=== PATIENT | female | born 1985 | race Caucasian/White ===

== ENCOUNTER 2016-12-24 22:51 | Emergency (ER) | payer MEDICAID ==
[2016-12-24 23:04] VITALS: BP 134/82
--- NOTE | 2016-12-25 00:16 | ED Physician Documentation ---
PD HPI FEMALE - Stated complaint Stated Complaint: FEMALE - Chief complaint Chief Complaint: General - History obtained from History obtained from: Patient - History of Present Illness Timing - onset: How many days ago (2) Timing - duration: Days (2) Timing - details: Gradual onset, Still present Associated symptoms: Vaginal discharge Contributing factors: IUD, Sexually active Similar symptoms before: Has not had sx before Recently seen: Not recently seen - Additional information Additional information: 31-year-old female is concerned that she may have foreign body in the vagina. She is having a foul smell and she does recall that she used toilet paper instead of a tampon and has had intercourse since then. She is worried about retained foreign body. Review of Systems Constitutional: denies: Fever Eyes: denies: Decreased vision Ears: denies: Ear pain Nose: denies: Congestion Throat: denies: Sore throat Cardiac: denies: Chest pain / pressure Respiratory: denies: Dyspnea, Cough GI: denies: Abdominal Pain, Nausea, Vomiting : reports: Discharge. denies: Dysuria, Frequency Skin: denies: Rash Musculoskeletal: denies: Neck pain, Back pain Neurologic: denies: Generalized weakness, Focal weakness, Numbness PD PAST MEDICAL HISTORY - Past Medical History Past Medical History: No - Past Surgical History Past Surgical History: No - Present Medications Home Medications: Ambulatory Orders Medication Instructions Recorded Confirmed No Known Home Medications [No 12/24/16 12/24/16 Known Home Medications] - Allergies Allergies/Adverse Reactions: Allergies Allergy/AdvReac Type Severity Reaction Status Date / Time No Known Drug Allergies Allergy Verified 12/24/16 23:04 - Social History Does the pt smoke?: Yes Smoking Status: Current every day smoker Does the pt drink ETOH?: No Does the pt have substance abuse?: Yes Substance Use and Type: Heroin - Immunizations Immunizations are current?: Yes - POLST Patient has POLST: No PD ED PE NORMAL - Vitals Vital signs reviewed: Yes (Normal) - General General: No acute distress, Well developed/nourished - HEENT HEENT: Atraumatic - Respiratory Respiratory: No respiratory distress - Female Female : Manager Assessment present (Denise), Other (There is a condom present in the vaginal vault. This is removed with a ring forceps and the vaginal vault is irrigated with water. There is matted pubic hair on the string of the IUD. This is removed with the use of the ring forceps and the area is further irrigated. There was no evidence of toilet paper in the vagina.) - Derm Derm: Normal color, Warm and dry, No rash - Neuro Neuro: No motor deficit, No sensory deficit - Psych Psych: Normal mood, Normal affect Results - Vitals Vitals: Vital Signs - 24 hr 12/24/16 22:55 Temperature 36.6 C Heart Rate 97 Respiratory 18 Rate Blood Pressure 134/82 H O2 Saturation 100 Oxygen O2 Source Room air PD MEDICAL DECISION MAKING - ED course Complexity details: considered differential, d/w patient ED course: 31-year-old female with vaginal foreign body that is removed with the red vagina is cleaned and the patient is is expected to recover fully. Departure - Departure Disposition: 01 Home, Self Care Clinical Impression: Vaginal foreign body Qualifiers: Encounter type: initial encounter Qualified Code(s): T19.2XXA - Foreign body in vulva and vagina, initial encounter Condition: Stable Instructions: ED Foreign Body Vaginal Follow-Up: [facility] [Provider Group]
== END 2016-12-25 00:36 | disposition home or self-care (01) ==
LOC: ED 22:51
DX: T19.2XXA Foreign body in vulva and vagina, initial encounter (principal); X58.XXXA Exposure to other specified factors, initial encounter; F17.200 Nicotine dependence, unspecified, uncomplicated
CPT/HCPCS: 99282; 99283

== ENCOUNTER 2017-09-23 08:00 | Outpatient (CLI) | payer MEDICAID | END 2017-09-23 08:01 | LOC: LAB.R 08:00 | PROVIDERS: ATTEND Nurse Practitioner Obstetrics & Gynecology | DX: N89.8 Other specified noninflammatory disorders of vagina (principal); Z11.3 Encounter for screening for infections with a predominantly sexual mode of transmission | CPT/HCPCS: 87480; 87491; 87510; 87591; 87660 ==

== ENCOUNTER 2018-01-12 08:00 | Outpatient (CLI) | payer MEDICAID | END 2018-01-12 23:59 | LOC: LAB.R 08:00 | PROVIDERS: ATTEND Nurse Practitioner Obstetrics & Gynecology | DX: N76.0 Acute vaginitis (principal) | CPT/HCPCS: 87480; 87510; 87660 ==

== ENCOUNTER 2018-03-10 10:13 | Outpatient (CLI) | payer MEDICAID | END 2018-03-10 10:14 | disposition home or self-care (01) | LOC: LAB.R 10:13 | PROVIDERS: ATTEND Nurse Practitioner Obstetrics & Gynecology | DX: N76.0 Acute vaginitis (principal); B37.3 Candidiasis of vulva and vagina | CPT/HCPCS: 87480; 87510; 87660 ==

== ENCOUNTER 2019-01-05 08:00 | Outpatient (CLI) | payer MEDICAID ==
[2019-01-05 20:34] LABS: CANDIDA GROUP DNA NEGATIVE (NEGATIVE); CANDIDA KRUSEI DNA NEGATIVE (NEGATIVE); TRICHOMONAS VAGINALIS DNA NEGATIVE (NEGATIVE)
[2019-01-05 21:05] LABS: TRICHOMONAS VAGINALIS DNA NEGATIVE (NEGATIVE)
== END 2019-01-05 23:59 | disposition home or self-care (01) ==
LOC: LAB.R 08:00
PROVIDERS: ATTEND Nurse Practitioner Obstetrics & Gynecology
DX: Z11.3 Encounter for screening for infections with a predominantly sexual mode of transmission (principal); N89.8 Other specified noninflammatory disorders of vagina
CPT/HCPCS: 87491; 87591; 87661; 87801

== ENCOUNTER 2019-10-03 14:00 | Outpatient (CLI) | payer MEDICAID ==
[2019-10-04 20:42] LABS: CANDIDA GROUP DNA NEGATIVE (NEGATIVE); CANDIDA KRUSEI DNA NEGATIVE (NEGATIVE); TRICHOMONAS VAGINALIS DNA NEGATIVE (NEGATIVE)
[2019-10-04 21:58] LABS: TRICHOMONAS VAGINALIS DNA NEGATIVE (NEGATIVE)
== END 2019-10-03 23:59 | disposition home or self-care (01) ==
LOC: LAB.R 14:00
PROVIDERS: ATTEND Obstetrics & Gynecology
DX: N89.8 Other specified noninflammatory disorders of vagina (principal)
CPT/HCPCS: 87491; 87591; 87661; 87801

== ENCOUNTER 2019-11-23 13:14 | Outpatient (CLI) | payer MEDICAID | END 2019-11-23 23:59 | disposition home or self-care (01) | LOC: LAB.R 13:14 | PROVIDERS: ATTEND Nurse Practitioner Obstetrics & Gynecology | DX: Z11.3 Encounter for screening for infections with a predominantly sexual mode of transmission (principal) | CPT/HCPCS: 81599; 87491; 87591 ==

== ENCOUNTER 2019-12-07 07:00 | Outpatient (CLI) | payer MEDICAID ==
[2019-12-07 19:55] LABS: CANDIDA GROUP DNA NEGATIVE (NEGATIVE); CANDIDA KRUSEI DNA NEGATIVE (NEGATIVE); TRICHOMONAS VAGINALIS DNA NEGATIVE (NEGATIVE)
== END 2019-12-07 23:59 | disposition home or self-care (01) ==
LOC: LAB.R 07:00
PROVIDERS: ATTEND Nurse Practitioner Obstetrics & Gynecology
DX: N76.0 Acute vaginitis (principal)
CPT/HCPCS: 87661; 87801

== ENCOUNTER 2020-02-29 08:00 | Outpatient (CLI) | payer MEDICAID ==
[2020-03-01 18:37] LABS: CANDIDA GROUP DNA NEGATIVE (NEGATIVE); CANDIDA KRUSEI DNA NEGATIVE (NEGATIVE); TRICHOMONAS VAGINALIS DNA NEGATIVE (NEGATIVE)
[2020-03-01 21:40] LABS: TRICHOMONAS VAGINALIS DNA NEGATIVE (NEGATIVE)
== END 2020-02-29 23:59 | disposition home or self-care (01) ==
LOC: LAB.R 08:00
PROVIDERS: ATTEND Obstetrics & Gynecology
DX: N76.0 Acute vaginitis (principal)
CPT/HCPCS: 87491; 87591; 87661; 87801

== ENCOUNTER 2022-05-10 08:52 | Emergency (ER) | payer MEDICAID ==
[2022-05-10 09:12] VITALS: BP 129/75
[2022-05-10] MEDS ORDERED: TRANEXAMIC ACID 1,000 MG/10 ML VIAL NAS STA (09:28)
[2022-05-10] MEDS ORDERED: OXYMETAZOLINE HCL 100 SPRAYS BOTTLE NAS STA (09:28)
--- NOTE | 2022-05-10 09:43 | ED Physician Documentation ---
History of Present Illness - Stated complaint Stated Complaint: NOSE BLEED - Chief complaint Chief Complaint: Heent - History obtained from History obtained from: Patient - History of Present Illness Pain level max: 0 Pain level now: 0 - Additonal information Additional information: 37-year-old female presents with a nosebleed today. She states that this started this morning. She states there is a small trickle from the right nostril, it then turned into brisk bleeding bilaterally. She states she has had nasal congestion and feels like she has had a sinus infection for the past several months. No history of bleeding or clotting disorders. Not on anticoagulants. Nothing makes it better or worse. No fevers. No chills. No facial pain. Review of Systems Constitutional: denies: Fever, Chills Nose: reports: Congestion, Sinus pressure / pain GI: denies: Vomiting, Diarrhea : denies: Now EGA Skin: denies: Rash Endocrine: denies: Easy bruising / bleeding PD PAST MEDICAL HISTORY - Past Medical History Past Medical History: No - Past Surgical History Past Surgical History: No - Present Medications Home Medications: Ambulatory Orders Medication Instructions Recorded Confirmed Amox/Clav 875/125 [Augmentin] 1 tab PO Q12H #20 tablet 05/10/22 - Allergies Allergies/Adverse Reactions: Allergies Allergy/AdvReac Type Severity Reaction Status Date / Time No Known Drug Allergies Allergy Verified 12/24/16 23:04 - Social History Does the pt smoke?: Yes Smoking Status: Current every day smoker Does the pt drink ETOH?: No Does the pt have substance abuse?: Yes - Immunizations Immunizations are current?: Yes - POLST Patient has POLST: No PD ED PE NORMAL - Vitals Vital signs reviewed: Yes - General General: Alert and oriented X 3, No acute distress, Well developed/nourished - HEENT HEENT: PERRL, Moist mucous membranes, Other (Bleeding from the bilateral naris, unable to visualize source clearly) - Neck Neck: Supple, no meningeal sign - Cardiac Cardiac: RRR - Respiratory Respiratory: No respiratory distress, Clear bilaterally - Derm Derm: Warm and dry - Neuro Neuro: Alert and oriented X 3 - Psych Psych: Normal mood, Normal affect Results - Vitals Vitals: Vital Signs - 24 hr 05/10/22 09:10 Temperature 37.1 C Heart Rate 96 Respiratory 18 Rate Blood Pressure 129/75 O2 Saturation 100 Oxygen O2 Source Room air Procedures - Epistaxis - Minor Site: Both, Cannot determine Preparation: Clots removed, Afrin, Clamp / pressure applied, Other (intranasal TXA B) Treatment: None needed - resolved Other: Observed - no bleeding, Pt tolerated well, O2 sat WNL PD Medical Decision Making - ED course Complexity details: considered differential, d/w patient ED course: Patient with epistaxis today. Has been complaining of sinus pressure and pain for the past several months. Concerned regarding sinus infection. The clots were removed from the bilateral nare. She was then administered intranasal Afrin and tranexamic acid bilaterally. A clamp was reapplied. No further bleeding. She does have tenderness over the sinuses, given the amount of time that she has had sinus issues, we will trial her on Augmentin to see if this resolves her sinus symptoms. We will have her follow-up with her doctor for further care. She will return if she worsens. No indication for lab testing at this time. No lightheadedness, dizziness, shortness of breath or chest pain. Patient counseled regarding signs and symptoms for which I believe and urgent re-evaluation would be necessary. Patient with good understanding of and agreement to plan and is comfortable going home at this time This document was made in part using voice recognition software. While efforts are made to proofread this document, sound alike and grammatical errors may occur. Departure - Departure Disposition: 01 Home, Self Care Clinical Impression: Epistaxis Sinusitis Qualifiers: Sinusitis location: unspecified location Chronicity: acute Recurrence: non- recurrent Qualified Code(s): J01.90 - Acute sinusitis, unspecified Condition: Good Instructions: ED Nosebleed, ED Sinusitis Abx Tx Follow-Up: JANET WATERMAN ARNP [Primary Care Provider] - Within 1 week Prescriptions: Amox/Clav 875/125 [Augmentin] 1 tab PO Q12H #20 tablet Comments: Please follow-up with your doctor as needed for further care. Please return if you worsen. Your prescriptions were sent to [facility] in [place]. You can also use Afrin twice daily for the next 2 to 3 days to help decrease swelling and stabilize the clot in your nose. Please do not vigorously blow your nose, pick your nose or place anything in your nose for the next 2 to 3 days. Discharge Date/Time: 05/10/22 11:35
== END 2022-05-10 11:35 | disposition home or self-care (01) ==
LOC: ED 08:52
DX: R04.0 Epistaxis (principal); J01.90 Acute sinusitis, unspecified; F17.200 Nicotine dependence, unspecified, uncomplicated
CPT/HCPCS: 99282; 99283; A9270